=== PATIENT | male | born 1955 ===

== ENCOUNTER 2018-04-06 10:41 | Inpatient (IN) | payer OTHER ==
[~2018-04-06] VITALS: Ht 177.8 cm; Wt 78.0 kg
[2018-04-06] MEDS ORDERED: SYNTHROID50 MCG (11:15)
[2018-04-06] MEDS ORDERED: LOSARTAN POTASS50 MG (11:15)
== END 2018-04-09 10:21 | disposition designated cancer center or children's hospital (05) | DRG 282 ==
LOC: ER 10:41 → SURH 04-07 10:07 → MEDJ 04-07 10:07 → MEDI 04-07 12:12 → SURH 04-07 12:12
PROC: 4A12X4Z Monitoring of Cardiac Electrical Activity, External Approach (ICD-10-PCS; principal; 2018-04-07)
DX: I21.4 Non-ST elevation (NSTEMI) myocardial infarction (principal); I10 Essential (primary) hypertension; E78.4 Other hyperlipidemia

== ENCOUNTER 2019-12-04 21:36 | Emergency (ER) | payer OTHER ==
[~2019-12-04] VITALS: Ht 177.8 cm; Wt 79.8 kg
[~2019-12-04 21:36] MED LIST: LOSARTAN POTASS50 MG; SYNTHROID50 MCG
[2019-12-04] MEDS ORDERED: ASPIR 8181 MG (21:43)
[2019-12-04] MEDS ORDERED: ZOLOFT50 MG (21:43)
[2019-12-04] MEDS ORDERED: LIPITOR40 M1 (21:43)
== END 2019-12-05 00:19 | disposition home or self-care (01) ==
LOC: ER 21:36
DX: T78.1XXA Other adverse food reactions, not elsewhere classified, initial encounter (principal); R21 Rash and other nonspecific skin eruption